=== PATIENT | female | born 1970 | race Caucasian/White ===

== ENCOUNTER 2023-03-21 11:29 | Outpatient (CLI) | payer BC, SELFPAY ==
[2023-03-21 11:52] LABS: Basophils # 0.1 K/mm3 (0-0.2); Basophils % 0.7 % (0.1-2.0); Eosinophils # 0.1 K/mm3 (0.0-0.4); Eosinophils % 1.5 % (0.1-12.0); Hematocrit 52.5 % (37.0-47.0); Hemoglobin 17.1 g/dL (12.2-16.2); Lymphocytes # 2.2 K/mm3 (0.7-4.5); Lymphocytes % 24.6 % (10-50); Mean Corpuscular HGB Conc 32.6 g/dL (31.8-35.4); Mean Corpuscular Hemoglobin 30.5 pg (27.0-31.2); Mean Corpuscular Volume 93.5 fl (81-99); Mean Platelet Volume 7.3 fl (7.4-10.4); Monocytes # 0.5 K/mm3 (0.1-1.0); Monocytes % 5.3 % (1.7-9.3); Neutrophils # 6.1 K/mm3 (1.8-7.8); Neutrophils % 67.8 % (37.0-80.0); Platelet Count 271 K/mm3 (142-424); Red Blood Count 5.62 M/mm3 (4.20-5.40); Red Cell Distribution Width 14.5 % (11.5-17.5)
[2023-03-21 12:18] LABS: Chloride 96 mmol/L (98-107); Potassium 3.5 mmoL/L (3.5-5.1); Sodium 139 mmol/L (136-145)
[2023-03-21 12:21] LABS: Anion Gap 10.5 mEq/L (5-15); Blood Urea Nitrogen 11 mg/dl (7-17); Carbon Dioxide 36 mmol/L (22.0-30.0); Estimated Glomerular Filt Rate 87 ml/min (>60); GFR (African American) 106 ML/MIN (>60)
[2023-03-21 12:22] LABS: Calcium 9.7 mg/dl (8.4-10.2); Glucose 99 mg/dl (74-100)
--- NOTE | 2023-03-21 12:27 | ECG_ITS ---
APPROVED REPORT Exam: Resting ECG HR:82 bpm ECG Measurements Heart Rate 82 AXES CO 184 P 75 QRSd 88 QRS 69 QT 352 T 50 QTc 391 Conclusion SINUS RHYTHM Late R wave progression ABNORMAL ECG UNCONFIRMED REPORT Electronically signed by : Estuardo Collins MD 03/21/2023 17:28:03
== END 2023-03-21 23:59 ==
PROVIDERS: PCP Family Medicine; Visit Provider Surgery
DX: D01.3 Carcinoma in situ of anus and anal canal (principal)
CPT/HCPCS: 36415; 80048; 85025; 93005

== ENCOUNTER 2023-03-24 06:06 | Day surgery (SDC) | payer BC, SELFPAY ==
[2023-03-24] VITALS (9 sets, daily range): BP systolic 110–146; BP diastolic 62–81; PULSE 75–96; RESP 13–18; TEMP 36.1–36.4; O2SAT 91–98; BMI 27.3
[2023-03-24] MEDS: LACTATED RINGERS 1000ML 1,000 ML 25 ML IV (06:34)
[2023-03-24 06:42] LABS: POC Glucose,Bedside 129 (70-110)
[2023-03-24] MEDS: CEFAZOLIN SODIUM 1 GM in 0.9 % SODIUM CHLORIDE 50 ML IV (07:15)
[2023-03-24] MEDS: LIDOCAINE 1% 20ML MDV 20 ML (07:20)
--- NOTE | 2023-03-24 07:20 | EXP.ANES.CKL ---
[facility] Disclaimer: The information contained in this section may have been updated after the patient was seen, as this information can be updated by other users. Medical History Diabetes type 2, controlled Diabetic autonomic neuropathy Hypertension Nevus Post-menopausal Vaginal atrophy Surgical History History of 3 sections History of back surgery History of salpingectomy Hx of hammer toe correction Hx of removal of cyst Hx of tonsillectomy Family History Other Cancer Diabetes Hypertension Social History Smoking Status: Current every day smoker tobacco type: cigarettes alcohol intake: never substance use type: denies use current occupational status: unemployed and other details: house Travel in the last 8 weeks: Inside the [facility] Anesthesia Checklist Patient Identification Patient Identification: Arm Band and Verbal (Name & ) Structural Data Admitted From: Home Planned Operative Procedure/s: Excision of perianal lesion Consent for Planned Operative Procedure(s) Verified: Yes NPO Status Verified Time NPO: 00:00 Additional verifications Anesthesia Reactions: No Hx Blood Transfusions: No Blood Transfusion Reaction: No Airway Assessment Mallampati Score:: Class I C-Spine Mobility Assessed: Yes TMJ Mobility Assessed: Yes Dentition: Good Dentition Neurological Assessment Level of Consciousness: Awake Hx Seizures: No Numbness or tingling in extremities: No Anesthesia Plan Anesthesia Risk discussed: Yes Anesthesia Plan: Verified ASA Class: II Anesthesia Type: General
[2023-03-24] MEDS: METRONIDAZ/SOD CHL 500 MG/100 ML PIGGYBACK 100 MG IV (07:38)
--- NOTE | 2023-03-24 07:54 | P.OP_ITS ---
Date of procedure: 03/24/23 Pre-op Diagnosis:: 1.75 cm pigmented right medial buttock/perianal skin lesion [Anal intraepithelial neoplasia III] Post-op Diagnosis:: Same Procedure performed:: Excision of 1.75 cm right medial buttock/perianal skin lesion [AIN III] Surgeon:: Markus Delcid MD COMPLIANCE DIRECTOR:: Patricia Vasquez Anesthesia: LMA Estimated blood loss (mL): 10 Clinical Note:: Patient with recent biopsy-proven AIN III in the right medial buttock/perianal region. Operative findings:: Lesion excised in toto Operative note:: After informed consent was obtained patient was taken to the operating room and placed in the supine position. General anesthesia with laryngeal mask airway was achieved. She was transferred to modified lithotomy position. The perianal region was prepped and draped in a sterile fashion. After infiltration with local anesthetic, an elliptical lesion was made around the pigmented skin lesion. The lesion was excised in toto (transection into the deeper subcutaneous tissue) and passed off for pathologic evaluation after being marked for margin (long lateral/short anterior). Electrocautery was utilized to achieve hemostasis. Skin was reapproximated with interrupted 5-0 nylon in a mattress fashion to facilitate hemostasis. Dressings were applied and the patient was transferred to recovery in stable condition after removal of her lar yngeal mask airway. Condition: stable Disposition: PACU Specimens:: Right medial buttock/perianal skin lesion (prior biopsy revealing pathologic confirmation of AIN III) Complications:: No immediate
--- NOTE | 2023-03-24 08:07 | P.PNANES_ITS ---
[facility] Anesthesia Record Part I Anesthesia Record I Intake, IV Amount: 600 Hydration: Adequate Estimated blood loss (mL): 5 Urine output (mL): 0 Blood Pressure: 130/63 SaO2: 92 Pulse Rate: 91 Airway Patency: Patent Respiratory Rate: 13 Temperature: 97 F Patient is:: Drowsy and Oral/Nasal airway Stable to PACU at:: 08:05
[2023-03-24 08:15] LABS: POC Glucose,Bedside 141 (70-110)
--- NOTE | 2023-03-25 11:52 | EXP.ANES.II ---
[facility] Anesthesia Record Part II Anesthesia Record Part II Discharge Time: 08:35 Destination: Surgical Day Care (OP Surgery) PACU nurse assessment reviewed?: Yes Patient Condition:: Good Anesthesia Complications:: None Swallowing reflex intact?: Yes Airway Patency: Patent Cyanosis?: No Blood Pressure: 131/75 SaO2: 92 Respiratory Rate: 16 Pulse Rate: 91 Temperature: 97.6 F Mental Status: Alert & Oriented Pain level:: 0 Nausea and/or vomitting:: None Intake, IV Amount: 0 Hydration: Adequate
[2023-03-25 11:53] VITALS: BP 131/75; PULSE 91; RESP 16; TEMP 36.4; O2SAT 92
== END 2023-03-24 09:06 | disposition home or self-care (01) ==
PROVIDERS: PCP Family Medicine; Visit Provider Surgery
PROC: (CPT 11402; principal; 2023-03-24 07:30)
DX: D01.3 Carcinoma in situ of anus and anal canal (principal)
CPT/HCPCS: 11402; 82962; 96374; J2405

== ENCOUNTER 2023-07-19 11:23 | Day surgery (SDC) | payer BC, SELFPAY ==
[2023-07-18 09:38] VITALS: BMI 27.4
[2023-07-19] VITALS (7 sets, daily range): BP systolic 114–149; BP diastolic 75–86; PULSE 69–76; RESP 16–18; TEMP 36.4–36.7; O2SAT 95–96
--- NOTE | 2023-07-19 11:51 | P.PCN_ITS ---
Procedure: Date: 07/19/23 Patient Date of :: 1970 Procedure Performed:: Colonoscopy Anoscopy Indications:: Screening History of medial buttock/perianal intraepithelial neoplasm III Performing Provider:: Markus Delcid MD Referring Provider:: . Sedation:: Monitored anesthesia care Procedure:: After informed consent was obtained the patient was taken to the endoscopy suite. Sedation ensued after the patient was transferred to the left lateral decubitus position. Pulse, blood pressure, and oxygen saturation were monitored throughout the procedure. Digital rectal exam revealed no significant abnorm ality. The anoscope was placed in position. Medial buttock/anal margin without significant anomaly. No definitive anal mucosal anomaly. Once the anoscope was removed, the colonoscope was placed in position. The entire colon was evaluated. The colonoscope was carefully removed and the patient was transferred to recovery in stable condition. Please see findings and specimens below for detail. Findings:: Bowel preparation moderate to poor Hemorrhoidal cushions/tags Scattered diverticulosis Significant lack of relaxation/spasticity Specimens:: None Recommendations:: Repeat colonoscopy in 3-6 months secondary to moderate to poor bowel preparation and spasticity/lack of relaxation. Discussion with regard to further evaluation/management of medial buttock/perianal intraepithelial neoplasm will be ongoing. Complications:: No immediate with the exception of moderate to poor bowel preparation. Estimated blood obtained (mL): 0 Colonoscopy Component Colonoscopy Component Was a colonoscopy performed during today's procedure?: Yes Recommended follow up colonoscopy of at least 10 years?: No If no, follow up colonoscopy recommended in ___ years?: (See above) Reason for not recommending >/= 10 yr follow-up interval?: (See above)
--- NOTE | 2023-07-19 11:55 | EXP.ANES.CKL ---
[facility] Disclaimer: The information contained in this section may have been updated after the patient was seen, as this information can be updated by other users. Medical History Vaginal atrophy Nevus Diabetic autonomic neuropathy Hypertension Diabetes type 2, controlled Post-menopausal Surgical History History of incision and drainage Hx of tonsillectomy History of back surgery Hx of hammer toe correction History of salpingectomy Hx of removal of cyst History of 3 sections Family History Other Cancer Diabetes Hypertension Social History Smoking Status: Current every day smoker tobacco type: cigarettes alcohol intake: never substance use type: denies use current occupational status: unemployed Travel in the last 8 weeks: Inside the [facility] Anesthesia Checklist Patient Identification Patient Identification: Arm Band, Family and Verbal (Name & ) Structural Data Admitted From: Home Planned Operative Procedure/s: Colonoscopy w/anoscopy Consent for Planned Operative Procedure(s) Verified: Yes Verified Documents: Surgical Consent and History and Physical NPO Status Verified Time NPO: 07:30 Chart Verification Results Verified: CBC, BMP and ECG Additional verifications Fingerstick Blood Glucose: 92 Patient : No Anesthesia Reactions: No Hx Blood Transfusions: No Blood Transfusion Reaction: No Cardiovascular Assessment Heart Sounds: S1 & S2 Pulse Rhythm: Irregular Peripheral Edema: No Airway Assessment Mallampati Score:: Class II Dentition: Good Dentition (Nothing loose per pt.) Neurological Assessment Level of Consciousness: Awake, Alert, Appropriate and Follows Commands Hx Seizures: No Numbness or tingling in extremities: No Anesthesia Plan Anesthesia Risk discussed: Yes Anesthesia Plan: Verified ASA Class: III Anesthesia Type: MAC
[2023-07-19 11:56] LABS: POC Glucose,Bedside 92 (70-110)
--- NOTE | 2023-07-19 12:34 | P.PNANES_ITS ---
[facility] Anesthesia Record Part I Anesthesia Record I Intake, IV Amount: 300 Hydration: Adequate Estimated blood loss (mL): 0 Urine output (mL): 0 Blood Products used (#): none Blood Pressure: 114/75 SaO2: 95 Pulse Rate: 71 Airway Patency: Patent Respiratory Rate: 16 Temperature: 98.1 F Patient is:: Drowsy and Stable Stable to PACU at:: 12:33
--- NOTE | 2023-07-19 12:51 | SUR.PHASEII ---
BJ IS UNAVAILABLE TO MAKE F/U APPOINTMENT, VOICEMAIL LEFT FOR HER TO CALL PT WITH 1 WEEK APPOINTMENT.
== END 2023-07-19 13:03 | disposition home or self-care (01) ==
PROVIDERS: PCP Family Medicine; Visit Provider Surgery
PROC: 0DJD8ZZ Inspection of Lower Intestinal Tract, Via Natural or Artificial Opening Endoscopic (ICD-10-PCS; CPT 45378; principal; 2023-07-19 12:30)
DX: Z12.11 Encounter for screening for malignant neoplasm of colon (principal); Z86.004 Personal history of in-situ neoplasm of other and unspecified digestive organs; K64.4 Residual hemorrhoidal skin tags; K57.30 Diverticulosis of large intestine without perforation or abscess without bleeding; E11.9 Type 2 diabetes mellitus without complications
CPT/HCPCS: 45378; 82962